=== PATIENT | male | born 2000 ===

== ENCOUNTER → 2023-03-20 09:45 | Outpatient (CLI) | payer OTHER, SELFPAY ==
--- NOTE | ~2023-03-20 | MR_ITS ---
MRI of the right shoulder Technique: Axial proton-density fat-sat images, coronal proton density fat-sat and T2 fat-sat images, and sagittal T1-weighted and T2 fat-sat images were acquired. Clinical History: Anterior dislocation Findings: There is no significant degenerative change at the AC joint. Coracoclavicular, coracoacromi al, and coracohumeral ligaments are intact. Supraspinatus and infraspinatus tendons are intact, without partial or full-thickness tear. Subscapul santosh tendon is intact. Tendon of the long head of the biceps is intact. There is inferior labral tear extending to the anteroinferior and anterior portions, consistent with soft tissue Bankart lesion related to recent dislocation. There is an acute Hill-Sachs impaction deformity of the posterior superior humeral head with associat ed marrow edema. No degenerative change of the glenohumeral joint. Inferior glenohumeral ligament is intact. There is fluid distending the axillary pouch of the glenohumeral joint. No fluid distention o f the subacromial/subdeltoid bursa. No muscle atrophy or edema. Impression: Extensive soft tissue Bankart lesion/labral tear related to recent anteroinferior humeral head disloc ation. Tear extends from the inferior labrum through the anteroinferior and anterior portions. Acute Hill-Sachs impaction deformity of the humeral head, as detailed above. Reviewed, dictated and finalized at [facility]. Impression: Extensive soft tissue Bankart lesion/labral tear related to recent anteroinferi or humeral head dislocation. Tear extends from the inferior labrum through the anteroinferior and anterior portions. Acute Hill-Sachs impaction deformity of the humeral head, as detailed above.
== END ==
DX: S43.014A Anterior dislocation of right humerus, initial encounter (principal); X58.XXXA Exposure to other specified factors, initial encounter
CPT/HCPCS: 73221